=== PATIENT | female | born 1970 | race Caucasian/White ===

== ENCOUNTER → 2019-10-09 16:07 | Outpatient (CLI) | payer OTHER, SELFPAY ==
--- NOTE | ~2019-10-09 | MM_ITS ---
EXAMINATION: MM screening thanh BI w nathaniel HISTORY: Screening mammogram, family history of breast cancer in her mother. TECHNIQUE: Craniocaudal and mediolateral oblique 3-D tomosynthesis images were obtained and synthetic 2-D images were generated. CAD analysis was submitted and interpreted. COMPARISON: 05/04/2018, 12/30/2016, 01/11/2012, 12/29/2011 BREAST PARENCHYMAL COMPOSITION: There are scattered areas of fibroglandular density. FINDINGS: RIGHT BREAST: There is a chronic, stable mass in the posterior third of the outer breast which demons trates biopsy change. There has been no suspicious interval change. No suspicious calcification or ar chitectural distortion are identified. LEFT BREAST: There is a chronic focal asymmetry in the upper outer quadrant of the breasts. In additi on, there is a chronic mass in the upper outer quadrant of the breast which demonstrates a biopsy mar ker. The mass demonstrates apparent slight increase in indeterminate calcifications. IMPRESSION: 1. Possible increase in indeterminate calcifications associated with a previously biopsied mass in th e upper outer quadrant of the left breast. 2. Magnification views are recommended. BI-RADS Category 0: Incomplete: Needs additional imaging evaluation. Reviewed, dictated and finalized at location A. [employer] IMPRESSION: 1. Possible increase in indeterminate calcifications associated with a previous ly biopsied mass in the upper outer quadrant of the left breast. 2. Magnification views are recommended. BI-RADS Category 0: Incomplete: Needs additional imaging evaluation.
== END ==
PROVIDERS: Visit Provider Nurse Practitioner
DX: Z12.31 Encounter for screening mammogram for malignant neoplasm of breast (principal); R92.8 Other abnormal and inconclusive findings on diagnostic imaging of breast
CPT/HCPCS: 77063; 77067

== ENCOUNTER → 2019-10-31 07:45 | Outpatient (CLI) | payer OTHER, SELFPAY ==
--- NOTE | ~2019-10-31 | MM_ITS ---
EXAMINATION: MM diagnostic mammo unilat LT HISTORY: Indeterminate left breast calcifications on screening mammogram. Previous biopsy of the left breast mass revealed: complex sclerosing lesion with focal ductal hyperplasia, apocrine metaplasia, and fibroadenomatoid change/stromal fibrosis with associated microcalcifications. TECHNIQUE: Additional images of the left breast were performed. CAD analysis was submitted and interp reted. COMPARISON: 10/09/2019, 05/04/2018, 12/30/2016, 01/11/2012 FINDINGS: Again seen is a mass in the posterior third of the outer breast with associated biopsy tejada ge. In the posterior aspect of the mass, there are grouped amorphous calcifications which have develo ped since prior comparison examinations. These are best appreciated on the craniocaudal view. IMPRESSION: 1. Developing indeterminate calcifications in the posterior aspect of the previously biopsied left br east mass. 2. Stereotactic biopsy is recommended. BI-RADS category 4, suspicious findings. Reviewed, dictated and finalized at location A. IMPRESSION: 1. Developing indeterminate calcifications in the posterior aspect of the previ ously biopsied left breast mass. 2. Stereotactic biopsy is recommended. BI-RADS category 4, suspicious findings.
== END ==
PROVIDERS: Visit Provider Obstetrics & Gynecology Gynecology
DX: R92.8 Other abnormal and inconclusive findings on diagnostic imaging of breast (principal)
CPT/HCPCS: 77065

== ENCOUNTER 2023-11-04 12:03 | Outpatient (CLI) | payer OTHER, SELFPAY ==
--- NOTE | ~2023-11-04 | DEXA_ITS ---
Bone Density Report Name: ISAÍAS CALLOWAY Age: 53 Sex: Female Ethnicity: White Date of : 1970 Indication: postmenopausal; screening for osteoporosis; height loss; hysterectomy; Referring Provider: GENNA, JENNY Study: Bone densitometry was performed. Exam Date: November 04, 2023 Accession number: [id number] Bone Density: Region BMD T-score Z-score Classification Femoral Neck (Left) 0.680 -1.5 -0.5 Osteopenia Total Hip (Left) 1.023 0.7 1.4 Normal Femoral Neck (Right) 0.703 -1.3 -0.2 Osteopenia Total Hip (Right) 0.928 -0.1 0.6 Normal Total Hip Mean 0.976 0.3 1.0 Normal World Health Organization criteria for BMD impression classify patients as: Normal (T-score at or above -1.0), Osteopenia (T-score between -1.0 and -2.5), or Osteoporosis (T-score at or below -2.5). 10-year Fracture Risk(1): Major Osteoporotic Fracture 5.4% Hip Fracture 0.4% Reported Risk Factors: [place] (), Neck BMD=0.680, BMI=50.3 (1) FRAX(R) Version 3.08. Fracture probability calculated for an untreated patient. Fracture probability may be lower if the patient has received treatment. Clinical Information Provided by Patient: Has used the following medications: HRT (i.e. estrogen/hormone therapy) Has the following medical conditions: Hysterectomy Patient maximum height was 64 Menopause Age: 45 No regular weight bearing exercise Drinks caffeinated beverages Onset of menses at age 10 Number of children 0 Impression: The patient has low bone mass, based on the Left Femoral Neck T-score. The patient has an estimated ten-year risk of hip fracture of 0.4% and an estimated ten-year risk of major fracture of 5.4%, based on the WHO FRAX algorithm. Discussion: BONE DENSITY IS LOW AT ONE OR MORE SKELETAL SITES. This patient's lowest T-score is low at one or more skeletal sites. It meets the World Health Organization's (WHO) criteria for ?low bone mass? (T-score between -1.0 and -2.5). The patient's 10-year risk of fracture as calculated by FRAX is less than the threshold where pharmacological therapy is recommended by the National Osteoporosis Foundation (NOF). However, all treatment decisions require clinical judgment and consideration of individual patient factors, including patient preferences, comorbidities, previous drug use, risk factors not captured in the FRAX model (e.g., frailty, falls, vitamin D deficiency, increased bone turnover, interval significant decline in bone density) and possible under or overestimation of fracture risk by FRAX. The patient should follow a healthful lifestyle (good nutrition with adequate calcium and vitamin D, and appropriate weight-bearing exercise). Follow-Up: Consider repeating this study in 2 to 3 years to reassess this patient's status, or sooner if there is some new clinical i
--- NOTE | ~2023-11-04 | MM_ITS ---
EXAMINATION: MM screening [facility] BI w nathaniel HISTORY: Screening mammogram TECHNIQUE: Craniocaudal and mediolateral oblique 3-D tomosynthesis images were obtained and synthetic 2-D images were generated. CAD analysis was submitted and interpreted. COMPARISON: 10/31/2019 diagnostic left mammogram October 09, 2019 bilateral screening mammogram BREAST PARENCHYMAL COMPOSITION: There are scattered areas of fibroglandular density. FINDINGS: Right breast: There is a new very suspicious spiculated approximately 9 mm mass with retraction situated in the sub areolar area of the right breast. Possible increased density at a prior biopsy density in the posterior outer mid right breast. Left breast: New approximately 2 mm and 3.2 mm irregular masses are suggested in the lower outer left breast. IMPRESSION: 1. New right subareolar areas very suspicious spiculated mass and 2 suspicious high density irregular 23.2 mm and 2 mm masses in the lower inner left breast. Additionally, a previously biopsied area in the posterior outer mid right breast appears mildly increased in size since October 09, 2019. 2. Bilateral diagnostic mammography and breast ultrasound examination are recommended BI-RADS Category 0: Incomplete: Needs additional imaging evaluation. Reviewed, dictated and finalized at location A. IMPRESSION: 1. New right subareolar areas very suspicious spiculated mass and 2 suspicious high density irregular 23.2 mm and 2 mm masses in the lower inner left breast. Additionally, a previously biopsied area in the posterior outer mid right breas t appears mildly increased in size since October 09, 2019. 2. Bilateral diagnostic mammography and breast ultrasound examination are recom mended BI-RADS Category 0: Incomplete: Needs additional imaging evaluation.
== END 2023-11-04 12:04 ==
LOC: MICIMG 12:05
PROVIDERS: PCP Nurse Practitioner; Visit Provider Nurse Practitioner
DX: Z12.31 Encounter for screening mammogram for malignant neoplasm of breast (principal); R92.8 Other abnormal and inconclusive findings on diagnostic imaging of breast; M85.89 Other specified disorders of bone density and structure, multiple sites; Z78.0 Asymptomatic menopausal state; Z13.820 Encounter for screening for osteoporosis
CPT/HCPCS: 77063; 77067; 77080

== ENCOUNTER 2023-12-21 07:38 | Outpatient (CLI) | payer OTHER, SELFPAY ==
--- NOTE | ~2023-12-21 | MMUS_ITS ---
EXAMINATION: MM diagnostic thanh BI w nathaniel, US breast RT limited, US breast LT complete HISTORY: Follow-up bilateral breast masses TECHNIQUE: Additional 3-D tomosynthesis images of the breasts were performed and synthetic 2-D images were generated. CAD analysis was submitted and interpreted. High resolution Limited right and comple te left breast ultrasound was performed. COMPARISON: Comparison to multiple prior studies sequentially, with oldest reviewed study dated 05/04. BREAST PARENCHYMAL COMPOSITION: Not dense: There are scattered areas of fibroglandular density. FINDINGS: MAMMOGRAPHIC FINDINGS: In the right breast there is a stable mass with elongated configuration and associated tissue marker in the lower outer quadrant of the right breast, middle third. There is a new spiculated subareolar m ass of the right breast anteriorly. In the left breast there is a stable sized mass in the upper outer quadrant of the left breast, middl e third with developing coarse calcifications, likely benign. There is a developing mass in the lower outer quadrant of the left breast with adjacent tissue marker. This mass is slightly more prominent than prior examinations allowing for differences of technique. There is a new irregular shaped mass i n the lower outer quadrant of the left breast, middle third. ULTRASOUND: Limited right breast ultrasound: At 6:00 near the areola there is an antiparallel irregular shaped hy poechoic mass with posterior shadowing measuring 1.3 x 1.1 x 1.4 cm. This corresponds to the mammogra phic finding. At 9:00, 8 cm from the nipple there is an irregular shaped poorly circumscribed mass wi th posterior shadowing which likely corresponds to the mass seen in the lower outer quadrant middle t hird by mammography. Complete left breast ultrasound including all 4 quadrants in the subareolar location: At 2:00, 9 cm f rom the nipple, there is an oval hypoechoic mass with internal calcifications and posterior shadowing measuring 2.4 cm, corresponding to the stable mass seen on mammography. At 3:00, 12 cm from the nipp le there is an oval hypoechoic 8mm mass with parallel orientation, no posterior features and no inter nal vascularity, likely benign. At 3:00, 7 cm from the nipple, there is an antiparallel irregular sha ped hypoechoic 7 mm mass with internal vascularity. At 11:00, 7 cm from the nipple there is a slightl y irregular shaped parallel oriented hypoechoic 1.4 cm mass with marginal vascularity, no posterior f eatures. IMPRESSION: 1. Suspicious masses of the right breast at 6:00 near the areola measuring 1.4 cm and in the left jovana ast at 3:00, 7 cm from the nipple measuring 7 mm at 11:00, 7 cm from the nipple measuring 1.4 cm. 2. Ultrasound-guided bilateral breast biopsies recommended. BI-RADS category 4, suspicious findings. Reviewed, dictated and finalized at location B. IMPRESSION: 1. Suspicious masses of the right breast at 6:00 near the areola measuring 1.4 cm and in the left breast at 3:00, 7 cm from the nipple measuring 7 mm at 11:00 , 7 cm from the nipple measuring 1.4 cm. 2. Ultrasound-guided bilateral breast biopsies recommended. BI-RADS category 4, suspicious findings. IMPRESSION: 1. Suspicious masses of the right breast at 6:00 near the areola measuring 1.4 cm and in the left breast at 3:00, 7 cm from the nipple measuring 7 mm at 11:00 , 7 cm from the nipple measuring 1.4 cm. 2. Ultrasound-guided bilateral breast biopsies recommended. BI-RADS category 4, suspicious findings.
== END 2023-12-21 07:39 ==
LOC: MICIMG 07:39
PROVIDERS: PCP Obstetrics & Gynecology Gynecology; Visit Provider Obstetrics & Gynecology Gynecology
DX: R92.8 Other abnormal and inconclusive findings on diagnostic imaging of breast (principal)
CPT/HCPCS: 76641; 76642; 77062; 77066; G0279